=== PATIENT | female | born 1935 | race Caucasian/White ===

== ENCOUNTER → 2018-05-27 10:51 | Outpatient (CLI) | payer MEDICARE, SELFPAY ==
--- NOTE | 2018-05-27 11:05 | XR_ITS ---
XR abdomen min 2V HISTORY: ITS.REASON: CONSTIPATION ORDERING PHYSICIAN: Alexandra Viera PATIENT AGE: 82 years COMPARISON: None FINDINGS: Bowel gas pattern is nonspecific and nonobstructive. Scattered pelvic calcifications are present consistent with phleboliths. There has been prior fusion of the lumbar spine at L3-L4 and L5. There is mild sclerosis of the left SI joint IMPRESSION: No acute finding. Small amount of colonic feces noted in the rectosigmoid area. No radiographic evidence of impaction
== END ==
PROVIDERS: PCP Family Medicine; Visit Provider Nurse Practitioner Family
DX: K59.00 Constipation, unspecified (principal)
CPT/HCPCS: 74019

== ENCOUNTER → 2020-07-24 15:29 | Outpatient (CLI) | payer MEDICARE, SELFPAY ==
--- NOTE | 2020-07-24 15:35 | XR_ITS ---
PROCEDURE: XR ACUTE ABDOMEN SERIES CLINICAL INDICATION: CONSTIPATION COMPARISON: No exams were available for comparison FINDINGS: Frontal view of the chest shows coronary artery stents and or calcifications with normal heart size. Calcified granuloma is present in the right lower lobe. Upright and supine views of the abdomen show postsurgical changes in the lumbar spine with inter pedicular screws at L3-L4 and L5 and mild lumbar scoliosis convex left. Bowel gas pattern is nonspecific. There is a mild amount of retained colonic feces throughout the colon. No intestinal obstruction or free air is evident. Mild osteoarthritis of the hips Other findings:Surgical clip right upper quadrant IMPRESSION: Mild constipation Dictated by: Isidro Gonzales MD 07/24/2020 16:47 Isidro Gonzales MD in [place] 07/24/2020 16:47
== END ==
PROVIDERS: PCP Family Medicine; Visit Provider Family Medicine
DX: K59.00 Constipation, unspecified (principal)
CPT/HCPCS: 74021

== ENCOUNTER → 2020-09-19 13:01 | Outpatient (CLI) | payer MEDICARE, SELFPAY ==
--- NOTE | 2020-09-19 13:07 | XR_ITS ---
PROCEDURE: XR KNEE RT 3V CLINICAL INDICATION: M17.9 Pain COMPARISON: No exams were available for comparison FINDINGS: No fracture or dislocation. No lytic or blastic change. There is normal mineralization. There are mild osteoarthritic changes of the medial compartment and patellofemoral joint. Chondrocalcinosis involves the medial and lateral meniscus. Vascular calcification is also present Other findings:None. IMPRESSION: Mild osteoarthritic change with chondrocalcinosis Dictated by: Isidro Gonzales MD 09/19/2020 14:33 Isidro Gonzales MD in [place] 09/19/2020 14:33
--- NOTE | 2020-09-19 13:07 | XR_ITS ---
PROCEDURE: XR KNEE LT 3V CLINICAL INDICATION: Pain COMPARISON: No exams were available for comparison FINDINGS: No fracture or dislocation. No lytic or blastic change. There is normal mineralization. Minimal osteoarthritic changes are present involving all 3 compartments with chondrocalcinosis of the medial meniscus and lateral meniscus. There is some increased soft tissue density in the suprapatellar region suggesting knee joint effusion. Vascular calcification noted of the popliteal artery. There is soft tissue calcification along the posterior aspect of the knee nonspecific. There is some faint calcification in the suprapatellar region possibly related to some mild capsular calcification. Other findings:None. IMPRESSION: Mild osteoarthritic change with chondrocalcinosis and small knee joint effusion Dictated by: Isidro Gonzales MD 09/19/2020 14:35 Isidro Gonzales MD in [place] 09/19/2020 14:35
== END ==
PROVIDERS: PCP Family Medicine; Visit Provider Family Medicine
DX: M17.0 Bilateral primary osteoarthritis of knee (principal)
CPT/HCPCS: 73562

== ENCOUNTER 2021-03-27 07:07 | Observation (INO) | payer MEDICARE, SELFPAY ==
[2021-03-27] VITALS (13 sets, daily range): BP systolic 142–167; BP diastolic 61–86; PULSE 60–103; RESP 14–20; TEMP 36.6–37.2; O2SAT 95–98; BMI 27.4; BMI 27.2; BMI 27.3
--- NOTE | 2021-03-27 07:13 | ECG_ITS ---
APPROVED REPORT Exam: Resting ECG HR:99 bpm ECG Measurements Heart Rate 99 AXES WI 190 P 77 QRSd 164 QRS 161 QT 386 T -14 QTc 495 Conclusion Normal sinus rhythm Right axis deviation Left bundle branch block Abnormal ECG Electronically signed by : Ramón Bianchi MD 03/27/2021 21:49:48
--- NOTE | 2021-03-27 07:19 | XR_ITS ---
PROCEDURE: XR CHEST PORTABLE CLINICAL HISTORY: chest pain,soa COMPARISON: CR XR ACUTE ABDOMEN SERIES from 07/24/2020 FINDINGS: Mild cardiomegaly without failure. The lungs are clear without infiltrates, suspicious nodules, or pleural effusions. No acute bony abnormalities. IMPRESSION: No acute findings. Dictated by: Isidro Gonzales MD 03/27/2021 07:58 Isidro Gonzales MD in [place] 03/27/2021 07:58
--- NOTE | 2021-03-27 07:29 | HMH.EDGENADL ---
ED Disposition Clinical Impression: Chest pain Qualifiers: Chest pain type: unspecified Qualified Code(s): R07.9 - Chest pain, unspecified Disposition: Admitted as Observation Condition on Discharge: Fair Referrals: Leo Grayson MD [Primary Care Provider] - Time of Disposition: 08:19 - Critical Care Critical Care Time: No Attestation: On 03/27/21, the high probability of a clinically significant, sudden or life threatening deterioration of the following system(s) required my full and direct attention, intervention and personal management. The time I documented below is in addition to time spent performing reported procedures but includes the following listed in this critical care notation. Medical Decision Making - Medical Records Medical records reviewed: Yes: I reviewed the patient's medical records. - Rajiv Inquiry Pt receiving controlled substance: No Vital Signs: 03/27/21 07:08 03/27/21 07:33 03/27/21 08:12 Temperature 97.8 F Temperature Source Oral Pulse Rate 97 H 82 Pulse Rate [Left Radial] 103 H Respiratory Rate 18 16 20 Blood Pressure 159/79 H 157/76 H Blood Pressure [Right Arm] 164/86 H Blood Pressure Mean [Right Arm] 112 Blood Pressure Source [Right Arm] Automatic Cuff Blood Pressure Position [Right Arm] Sitting 02 Sat by Pulse Oximetry 98 97 96 Oxygen Delivery Method Room Air Room Air Room Air - Lab Data Lab Results 03/27/21 07:22: WBC 8.0, RBC 4.39, Hgb 13.8, Hct 40.3, MCV 91.7, MCH 31.4 H, MCHC 34.3, RDW 13.3, Plt Count 192, MPV 9.4, Neut % (Auto) 82.6 H, Lymph % (Auto) 8.7 L, [place] % (Auto) 6.6, Eos % (Auto) 1.6, Baso % (Auto) 0.5, Neut # (Auto) 6.6, Lymph # (Auto) 0.7, [place] # (Auto) 0.5, Eos # (Auto) 0.1, Baso # (Auto) 0.0 03/27/21 07:22: Sodium 136, Potassium 3.8, Chloride 103, Carbon Dioxide 26, Anion Gap 10.8, BUN 15, Creatinine 0.90, Estimated Creat Clear 44, Estimated GFR 60, Est GFR ( Amer) 72, Glucose 126 H, Calcium 9.7, Troponin I 0.19 H Result diagrams: 03/27/21 07:22 03/27/21 07:22 Orders (Tests/Meds): ED MEDICATIONS Discontinued Medications Generic Name Dose Route Start Last Admin Trade Name Lizette PRN Reason Stop Dose Admin Aspirin 324 mg 03/27/21 07:21 12 07:32 Aspirin 81mg Chewable Tablet PO 03/27/21 07:22 324 mg ONCE ONE Administration ORDERS Category Date Time Status D-Dimer Stat Lab 03/27/21 07:22 Received Troponin I Q3H Lab 03/27/21 10:30 Ordered Troponin I Q3H Lab 03/27/21 13:30 Ordered - ECG Data Tracing #1 Sinus rhythm with ventricular rate of 99 bpm. QRS 164, QTc 495. Left bundle branch block present. No ST segment elevations. No arrhythmia. - WENDY Score for Non-Stemi Age of Patient: 80-89 years old Heart Rate: 90-109 bpm Systolic Blood Pressure: 140-159 mmHg Serum Creatinine: 1.20-1.59 mg/dl CHF Killip Class: I-No CHF Other Risk Factors: None Non-Stemi Risk Score: 140 Medical Decision Narrative: In summary this is an 85-year-old female presenting to the emergency department after an episode of chest pain. Patient clinically stable on arrival. Vital signs within normal limits with exception of tachycardia to 103. Afebrile. Differential diagnoses include atypical ACS, inflammatory reaction from vaccination, pleuritic chest pain, pneumonia. Will obtain BC, BMP, chest x-ray, EKG, troponin profile, D-dimer. Patient given 325 chewable aspirin Chest x-ray shows no focal opacity. No other acute abnormality. Initial laboratory results show no anemia. Renal function adequate. Initial troponin is elevated at 0.19. Patient's turbine technician is at [facility], Dr. Ariza. Offered her transfer. She does not want to be admitted elsewhere. Dr. Grayson consulted for admission. On reassessment, she is not having chest pain at this time. We will repeat troponin in 2 hours. Admit for trending of troponin, echo, observation. General Adult HPI - General Stated
[2021-03-27 07:38] LABS: Basophils % 0.5 % (0.1-2.0); Eosinophils # 0.1 K/mm3 (0.0-0.4); Eosinophils % 1.6 % (0.1-12.0); Hematocrit 40.3 % (37.0-47.0); Hemoglobin 13.8 g/dL (12.2-16.2); Lymphocytes # 0.7 K/mm3 (0.7-4.5); Lymphocytes % 8.7 % (10-50); Mean Corpuscular HGB Conc 34.3 g/dL (31.8-35.4); Mean Corpuscular Hemoglobin 31.4 pg (27.0-31.2); Mean Corpuscular Volume 91.7 fl (81-99); Mean Platelet Volume 9.4 fl (7.4-10.4); Monocytes # 0.5 K/mm3 (0.1-1.0); Monocytes % 6.6 % (1.7-9.3); Neutrophils # 6.6 K/mm3 (1.8-7.8); Neutrophils % 82.6 % (37.0-80.0); Platelet Count 192 K/mm3 (142-424); Red Blood Count 4.39 M/mm3 (4.20-5.40); Red Cell Distribution Width 13.3 % (11.5-17.5)
[2021-03-27 07:57] LABS: Anion Gap 10.8 mEq/L (5-15); Blood Urea Nitrogen 15 mg/dl (7-17); Calcium 9.7 mg/dl (8.4-10.2); Carbon Dioxide 26 mmol/L (22.0-30.0); Chloride 103 mmol/L (98-107); Creatinine Clearance Estimated 44 mL/min (50-200); Estimated Glomerular Filt Rate 60 ml/min (>60); GFR (African American) 72 ML/MIN (>60); Glucose 126 mg/dl (74-100); Potassium 3.8 mmoL/L (3.5-5.1); Sodium 136 mmol/L (136-145)
[2021-03-27 08:09] LABS: Troponin I 0.19 ng/ml (0.00-0.034)
[2021-03-27 08:16] LABS: D-Dimer 0.63 ug/mL (0.0-0.5)
--- NOTE | 2021-03-27 08:30 | PC.NURSE ---
called Erin to obtain prior stress test records. medical released faxed.
--- NOTE | 2021-03-27 08:33 | CA_ITS ---
APPROVED REPORT EXAM: Comprehensive 2D, Doppler, and color-flow Echocardiogram Weather Forcaster: JL Mccarthy, RVS Ht: 5 ft 2 in Wt: 149lbs BSA: 1.69 BP: 000/00 mmHg Indications: CP. CAD-2 coronary stents, HTN, LBBB, Parkinson's Echo Enhancing Agent Indication: Rule out thrombus Agent(s) / Amount(s) Used: Definity 2 cc 2D Dimensions IVSd 1.37 cm LVEF (Visual) 35.00 % PWd 0.99 cm LA Volume 89.30 mL LVDd 5.36 cm LA Volume Index 52.80 mL/m2 (M/F) 16-34 LVDs 3.90 cm F: 2.2 - 3.5 Aortic Root 2.92 cm Left Atrium 4.45 cm LVOT 2.03 cm (M/F) 1.5-2.5 M-Mode Dimensions RVDd 3.31 cm (0.9-2.6) LA Diam 4.59 cm (1.9-4.0) LVDd 5.63 cm (3.5-5.7) Ao Diam 3.18 cm (2.0-3.7) LVDs 4.79 cm (3.5-5.7) IVSd 1.25 cm (0.6-1.1) PWd 0.99 cm (0.6-1.1) EF (Teich) 30.40% EPSs 0.69 cm FS 14.50% EDV (Teich) 153.70 mL TAPSE 1.83 (<1.7) ESV (Teich) 107.00 mL LV Diastology E Decel Time 160.00 (160-240 msec) E/A Ratio 0.84 MED E' 7.80 (< 7 cm/sec) MED A' 11.40 cm/s E'/MED E' Ratio 10.23 (>14) LAT E' 7.50 (<10 cm/sec) LAT A' 13.10 cm/s E/LAT E' Ratio 10.64 (>14) Pulm Vein s 43.00 cm/sec Aortic Valve LVOT Max 86.00 (70-110 cm/s) LVOT VTI 17.35 cm AoV Peak Terry. 140.00 (50-130 cm/s) AO Peak GR. 7.90 mmHg AO Mean GR. 4.60 (<5 mmHg) AO VTI 27.97 (18-25 cm) JEANIE (VTI) 2.01 (2.5-4.5 cm2) Mitral Valve MV A Velocity 95.00 (40-130 cm/s) E/A Ratio 0.84 MV Decel. Time 160.00 (160-240 ms) MV Mean Gr. 1.80 (<2mmHg) Pulmonary Valve PV Peak Velocity 84.00 (50-150 cm/s) SC End VMAX 224.00 cm/s Tricuspid Valve TR P. Velocity 289.00 cm/s RAP Estimate 10.00 mmHg RVSP 43.30 mmHg Left Ventricle Left atrium is mildly enlarged, left ventricle is mildly dilated, there is severe reduced left ventricular systolic function, visually estimated ejection fraction 25 to 30%, there is marked hypokinesis involving the mid to distal septum, anterior and anterior apical wall. Grade 1 diastolic dysfunction seen without tissue Doppler evidence of late left atrial pressure. Right Ventricle Right atrium and right ventricle are normal size and contractility. Aortic Valve Aortic valve is minimally thickened and fibrosed, there is no aortic stenosis or aortic insufficiency. Mitral Valve Mitral valve grossly normal, there is mild mitral regurgitation. Tricuspid Valve Tricuspid valve grossly normal, there is mild tricuspid regurgitation. Calculated right ventricular systolic pressure is 43 mmHg. Pulmonic Valve Pulmonic valve is poorly visualized. Great Vessels Aortic root is normal size. Inferior vena cava is mildly dilated with normal inspiratory collapse. Pericardium No significant pericardial effusion noted. Conclusion 1. Mildly enlarged left atrium, normal left ventricular size, mild concentric left ventricular hypertrophy, severely reduced left ventricular systolic function, visually estimated ejection fraction 25 to 30%, with segmental wall motion abnormality described above, grade 1 diastolic dysfunction seen without tissue Doppler evidence of raise left atrial pressure. 2. Mild mitral and tricuspid regurgitation, calculated right ventricular systolic pressure is 43 mmHg. 3. No significant pericardial effusion noted. 4. Inferior vena cava is mildly dilated with normal inspiratory collapse. Electronically sig
[2021-03-27 08:51] LABS: Coronavirus 19, PCR Not Detected (NotDetected); Influenza A, PCR Not Detected (NotDetected); Influenza B, PCR Not Detected (NotDetected)
--- NOTE | 2021-03-27 10:01 | PC.NURSE ---
calling Erin to check the status of records
--- NOTE | 2021-03-27 10:05 | PC.NURSE ---
[facility] states they do not have records associated with pt. being transferred to [facility]
--- NOTE | 2021-03-27 10:11 | PC.NURSE ---
Report given Paula PALENCIA
--- NOTE | 2021-03-27 10:31 | HMH.HP ---
*Admission Date: 03/27/17 <Alexandra Viera 03/27/21 10:55> *Chief complaint: Chest pain <Alexandra Viera 03/27/21 10:55> *History of present illness: Ms. Cantrell is an 85-year-old female with a history of hyperlipidemia, orthostatic hypotension, esophageal reflux, DVT, ASCVD, peptic ulcer disease, Parkinson's disease who presented to [facility] for evaluation after experiencing severe right anterior chest pain radiating through to her back. She stated the pain started around 3 AM and continued for an hour and gradually lessened to the point where she was able to go back to sleep. At this point she is comfortable. She denies associated shortness of breath, nausea and vomiting, and palpitations. She states it was just severe pain. She reports also that she had her flu vaccine yesterday. She experienced the same type of chest pain after receiving her COVID injection. She does see her accounting/finance tutor, Dr. Collins annually. In the emergency room she was found to be clinically stable upon arrival and was comfortable. Heart rate was 103. Initial troponin was slightly elevated.. She was then admitted for further evaluation. Chest x-ray revealed no acute findings. Echocardiogram has been completed with pending results. Laboratory data revealed no anemia and white blood cell count of 8000 blood chemistries show normal electrolytes with a BUN of 15 and creatinine 0.9. Troponin I is slightly elevated at 0.19. At the time of this exam patient remains comfortable. She denies shortness of breath. <Socorro Vierahy 03/27/21 10:55> [facility] History Medical History: Reports:: Atherosclerotic Heart Disease, Coronary Artery Disease, Deep Vein Thrombosis, Gastroesophageal Reflux Disease(GERD), Hyperlipidemia, Ulcer <MaximilianoAlexandra 03/27/21 10:55> *Have you ever received a pneumonia vaccine?: No <MaximilianoAlexandra 03/27/21 10:55> *Have you received a flu vaccine this season?: No <Alexandra Viera 03/27/21 10:55> Other Medical History: Reports: Arthritis (Degenerative joint disease) <Alexandra Viera 03/27/21 10:55> Comment:: Parkinson's disease <Alexandra Viera 03/27/21 10:55> Laterality Cases: Bilateral: Cataract <VieraAlexandra raymond 03/27/21 10:55> Other Surgeries: Yes: Cholecystectomy, Coronary Stent, Hysterectomy-Total <Viera,Alexandra 03/27/21 10:55> Comment: L3-L4 complete bilateral laminectomy and decompression; L3-L4-L5 with interbody bony endplate preparation and fusion at 3?4 and L4-5 in 2014. <MaximilianoAlexandra 03/27/21 10:55> - *Social History Smoking Status: Never smoker <Alexandra Viera 03/27/21 10:55> Alcohol Intake: never <MaximilianoAlexandra 03/27/21 10:55> *Occupational Status:: retired <Alexandra Viera 03/27/21 10:55> Housing: house <Alexandra Viera 03/27/21 10:55> Household Members: none <Socorro Vierahy 03/27/21 10:55> *Travel in the last 8 weeks: None <Alexandra Viera 03/27/21 10:55> Family Hx:: Hypertension, Stroke <Alexandra Viera 03/27/21 10:55> Review of Systems - Constitutional Reports lack of energy, Denies fever(s) <Alexandra Viera 03/27/21 10:55> - Eyes Denies change in vision <Alexandra Viera 03/27/21 10:55> - ENT Denies ear pain, Denies headache(s), Denies sore throat <Socorro Vierahy 03/27/21 10:55> - *Cardiovascular Reports chest pain, Reports chest pain at rest, Reports leg swelling (Left leg greater than right), Denies shortness of breath, Denies irregular heart rhythm <Alexandra Viera 03/27/21 10:55> - *Respiratory Denies chest congestion, Denies cough <Alexandra Viera 03/27/21 10:55> - *Gastrointestinal Reports heartburn, Denies abdominal pain, Denies change in stools, Denies nausea, Denies vomiting <Alexandra Viera 03/27/21 10:55> - *Genitourinary Reports difficulty urinating (Voids frequently in small amounts for the past 2 to 3 months) <Alexandra Viera 03/27/21 10:55> - *Musculoskeletal Denies abnormal walking, Denies muscle weakness <Alexandra Viera - 03/27/21 10:5
--- NOTE | 2021-03-27 10:31 | PC.NURSE ---
pt arrived to the floor at this time
[2021-03-27 11:27] LABS: Troponin I 0.19 ng/ml (0.00-0.034)
--- NOTE | 2021-03-27 11:55 | HMH.PHAVTE ---
[facility] VTE Monitoring - Patient Demographics Admission date: 03/27/21 Report Date: 03/27/21 Time: 11:55 Allergies/Adverse Reactions: Patient Allergies No Known Allergies Allergy (Verified 08/06/17 16:04) Height: 1.57 m Weight: 67.58 kg Patient Problems: Current Active Problems Chest pain (Acute) ASCVD (arteriosclerotic cardiovascular disease) (Chronic) GERD (gastroesophageal reflux disease) (Chronic) Parkinsons disease (Chronic) Orthostatic hypotension (Chronic) - VTE Risk Labs: VTE Related Lab Results Hgb 13.8 g/dL (12.2-16.2) 03/27/21 07:22 Hct 40.3 % (37.0-47.0) 03/27/21 07:22 Plt Count 192 K/mm3 (142-424) 03/27/21 07:22 BUN 15 mg/dl (7-17) 03/27/21 07:22 Creatinine 0.90 mg/dl (0.52-1.04) 03/27/21 07:22 Estimated Creat Clear 44 mL/min (50-200) 03/27/21 07:22 Was VTE Risk Assessment Performed: Yes VTE Risk Level: Low Risk Clinical Trial Participant: No - Prophylaxis VTE Prophylaxis Ordered?: Yes Types of VTE Prophylaxis: TEDS Knee High
[2021-03-27 14:01] LABS: Troponin I 0.15 ng/ml (0.00-0.034)
--- NOTE | 2021-03-27 17:31 | PC.NURSE ---
Patient is NSR on tele and on room air. Patient is up ad-suzie. Patient has been up to chair. Alert and oriented times 4. Phone and call light in reach. Will continue to monitor.
--- NOTE | 2021-04-02 23:57 | HMH.DCSUM ---
General - General Admission date:: 03/27/21 <Leo Grayson - 05/19/21 22:22> 03/27/21 <Bernarda Patterson - 04/03/21 00:01> Discharge date: 03/27/21 <Bernarda Patterson - 04/03/21 00:01> HPI HPI: Ms. Cantrell is an 85-year-old female with a history of hyperlipidemia, orthostatic hypotension, esophageal reflux, DVT, ASCVD, peptic ulcer disease, Parkinson's disease who presented to [facility] for evaluation after experiencing severe right anterior chest pain radiating through to her back. She stated the pain started around 3 AM and continued for an hour and gradually lessened to the point where she was able to go back to sleep. At this point she is comfortable. She denies associated shortness of breath, nausea and vomiting, and palpitations. She states it was just severe pain. She reports also that she had her flu vaccine yesterday. She experienced the same type of chest pain after receiving her COVID injection. She does see her aeronautical engineering technologist, Dr. Collins annually. In the emergency room she was found to be clinically stable upon arrival and was comfortable. Heart rate was 103. Initial troponin was slightly elevated.. She was then admitted for further evaluation. Chest x-ray revealed no acute findings. Echocardiogram has been completed with pending results. Laboratory data revealed no anemia and white blood cell count of 8000 blood chemistries show normal electrolytes with a BUN of 15 and creatinine 0.9. Troponin I is slightly elevated at 0.19. At the time of this exam patient remains comfortable. She denies shortness of breath. <Bernarda Patterson - 04/03/21 00:01> Hospital Course Hospital Course: The patient was pain-free after admission and her troponins trended downward. She was eager to go home and was stable to be discharged. Echo was pending at the time of discharge but has since returned showing an EF of 25 to 30% with grade 1 diastolic dysfunction. She had an elevated right ventricular systolic pressure 43 mmHg. <Bernarda Patterson - 04/03/21 00:01> Objective Vital signs: Temp Pulse Resp BP Pulse Ox 99.0 F 60 18 142/62 H 96 03/27/21 15:45 03/27/21 17:23 03/27/21 15:45 03/27/21 15:45 03/27/21 15:45 <Leo Grayson - 05/19/21 22:22> Temp Pulse Resp BP Pulse Ox 99.0 F 60 18 142/62 H 96 03/27/21 15:45 03/27/21 17:23 03/27/21 15:45 03/27/21 15:45 03/27/21 15:45 <Bernarda Patterson - 04/03/21 00:01> Narrative: - Constitutional no acute distress Comments: Lying on stretcher in the emergency room awaiting admission to the hospital. She appears comfortable. - *Routine HEENT Exam Head: Present: normocephalic, atraumatic Eye: Present: PERRL. Absent: conjunctival icterus, scleral injection ENT: Present: mucous membranes moist, oropharynx clear - *Routine Neck Exam Present: supple. Absent: carotid bruit, lymphadenopathy, thyromegaly - *Routine Respiratory Exam Present: CTA bilaterally (Anteriorly and posteriorly) - *Routine Cardiovascular Exam Present: RRR (Monitor showing sinus rhythm in the 80s with a bundle branch block) - *Routine Abdominal Exam Present: soft, normoactive bowel sounds. Absent: tenderness - *Routine Rectal Exam Rectal:: deferred - *Routine Genitalia Exam Genitalia:: deferred - *Routine Extremities Exam Absent: edema, calf tenderness Comments: Slight tremor of hands bilaterally noted - *Routine Neurological Exam Present: alert, oriented X3 <Bernarda Patterson - 04/03/21 00:01> DS: Diagnosis - Discharge Diagnosis (1) Chest pain Status: Acute (2) Elevated troponin Status: Acute (3) ASCVD (arteriosclerotic cardiovascular disease) Status: Chronic (4) GERD (gastroesophageal reflux disease) Status: Chronic (5) Parkinsons disease Status: Chronic (6) Orthostatic hypotension Status: Chronic <Bernarda Patterson - 04/02/21 23:57> (1)
== END 2021-03-27 18:06 | disposition home or self-care (01) ==
LOC: ER 08:25 → 2ND 09:43
PROVIDERS: Emergency Medicine; Admitting Provider Family Medicine; Emergency Provider Emergency Medicine; PCP Family Medicine; Visit Provider Family Medicine
DX: R07.9 Chest pain, unspecified (principal); I25.10 Atherosclerotic heart disease of native coronary artery without angina pectoris; I10 Essential (primary) hypertension; Z79.899 Other long term (current) drug therapy; R77.8 Other specified abnormalities of plasma proteins; K21.9 Gastro-esophageal reflux disease without esophagitis; G20 Parkinson's disease; I95.1 Orthostatic hypotension
CPT/HCPCS: G0378; 36415; 71045; 80048; 84484; 85025; 85378; 93005; 93306; 99284; C9803; Q9957; U0003; U0005

== ENCOUNTER → 2021-04-04 09:39 | Outpatient (CLI) | payer MEDICARE, SELFPAY ==
[2021-04-04 10:20] LABS: Basophils % 0.6 % (0.1-2.0); Eosinophils # 0.1 K/mm3 (0.0-0.4); Eosinophils % 1.4 % (0.1-12.0); Hematocrit 37.9 % (37.0-47.0); Lymphocytes # 1.9 K/mm3 (0.7-4.5); Lymphocytes % 27.8 % (10-50); Mean Corpuscular HGB Conc 34.3 g/dL (31.8-35.4); Mean Corpuscular Hemoglobin 31.2 pg (27.0-31.2); Mean Platelet Volume 8.5 fl (7.4-10.4); Monocytes # 0.5 K/mm3 (0.1-1.0); Monocytes % 6.6 % (1.7-9.3); Neutrophils # 4.4 K/mm3 (1.8-7.8); Neutrophils % 63.6 % (37.0-80.0); Platelet Count 225 K/mm3 (142-424); Red Blood Count 4.17 M/mm3 (4.20-5.40); Red Cell Distribution Width 13.3 % (11.5-17.5); White Blood Count 6.9 K/mm3 (4.8-10.8)
[2021-04-04 11:07] LABS: 25-OH Vitamin D, Total 36.9 ng/mL (30-100)
[2021-04-04 23:44] LABS: Alanine Aminotransferase 13 U/L (12-78); Albumin Level 3.9 g/dl (3.5-5.0); Albumin/Globulin Ratio 1.4 (1.1-1.8); Alkaline Phosphatase 64 U/L (38-126); Anion Gap 11.1 mEq/L (5-15); Aspartate Amino Transferase 25 U/L (14-36); Bilirubin,Total 0.6 mg/dl (0.2-1.3); Blood Urea Nitrogen 17 mg/dl (7-17); Calcium 9.6 mg/dl (8.4-10.2); Carbon Dioxide 21 mmol/L (22.0-30.0); Chloride 109 mmol/L (98-107); Chol/HDL Ratio 2.2 (1-3.5); Cholesterol 128 mg/dl (140-200); Estimated Glomerular Filt Rate 68 ml/min (>60); GFR (African American) 82 ML/MIN (>60); Globulin 2.7 g/dL (1.3-3.2); Glucose 95 mg/dl (74-100); HDL Cholesterol 58 mg/dl (40-60); Potassium 4.1 mmoL/L (3.5-5.1); Sodium 137 mmol/L (136-145); Total Protein,Serum 6.6 g/dl (6.3-8.2); Triglycerides 159 mg/dl (30-150); VLDL Cholesterol 32 mg/dL (0-40)
[2021-04-04 23:54] LABS: Direct LDL Cholesterol 45.01 mg/dL (100-129)
[2021-04-05 00:15] LABS: Thyroid Stimulating Hormone 2.33 uIU/mL (0.465-4.68)
[2021-04-05 00:33] LABS: Vitamin B12 389 pg/mL (239-931)
== END ==
PROVIDERS: Visit Provider Family Medicine
DX: I10 Essential (primary) hypertension (principal); E78.5 Hyperlipidemia, unspecified; E53.8 Deficiency of other specified B group vitamins; E55.9 Vitamin D deficiency, unspecified; R53.83 Other fatigue
CPT/HCPCS: 36415; 80053; 80061; 82306; 82607; 84443; 85025

== ENCOUNTER 2022-01-26 07:52 | Emergency (ER) | payer MEDICARE, SELFPAY ==
[2022-01-26 07:53] VITALS: BP 173/84; PULSE 79; RESP 18; TEMP 36.8; O2SAT 98; BMI 23.4
--- NOTE | 2022-01-26 08:30 | PC.NURSE ---
ED MD AT BEDSIDE FOR EVALUATION
--- NOTE | 2022-01-26 08:34 | HMH.EDGENADL ---
Discharge Plan Disposition Patient Disposition: Home, Self-Care Condition: Good Prescriptions Prescriptions: New cephalexin 250 mg capsule 250 mg PO Q6H 5 Days Qty: 20 0RF ibuprofen 600 mg tablet 600 mg PO Q6H PRN (Reason: moderate pain ) Qty: 20 0RF polyethylene glycol 3350 [Miralax] 17 gram powder in packet 17 g PO DAILY Qty: 5 0RF No Action aspirin [Aspir-81] 81 MG tablet,delayed release (DR/EC) 81 mg PO DAILY carbidopa-levodopa 1 EACH tablet,disintegrating 1 ea PO TID Rx Instructions: 25/100mg benztropine 2 MG tablet 2 mg PO TID rosuvastatin 20 MG tablet 20 mg PO HS Referrals Follow up/Referrals: Leo Grayson MD [Primary Care Provider] - See instructions Activity Restrictions/Add. Instructions Additional Instructions/Restrictions: Ibuprofen as needed for pain. Continue stool softeners. Add MiraLAX for 5 days. Follow-up with primary care provider, call Friday to make appointment. Urine culture has been performed, results generally take 2 to 3 days. Follow-up the results of this test with your primary care provider within 2 to 3 days. Take antibiotic until culture results received. Additional instructions for ABDOMINAL PAIN: See your physician as soon as possible for further evaluation. Return immediately if worsening abdominal pain, vomiting, shortness of breath, fever, vomiting of blood or abdominal distention. Clinical Impressions Clinical Impression: Abdominal pain, Acute constipation, Hernia, umbilical Discharge ED Provider: Nirmal Clifford General Adult HPI General Chief complaint: Abdominal Pain Stated complaint: post op 01/25, abd pain Time Seen by Provider: 01/26/22 08:29 Mode of Arrival: Wheelchair Limitations: No Limitations Description of Symptoms (Recalled from ER Triage Doc. by RN): PT REPORTS LOWER ABDOMINAL PAIN. STATES SHE FEELS LIKE SHE HAS GAS REPORTS SIMILAR EPISODE EARLIER THIS MONTH. PT REPORTS BM ON FRIDAY. HAD HEART CATH AT YESTERDAY History of Present Illness HPI narrative: 1 week history of lower abdominal pain, waxing and waning. No fever, no vomiting. No urinary symptoms. She has a chronic problem with constipation for 10 years. She takes 2 stool softener tablets with each meal. She says that somebody told her to use some prunes for her current symptoms, which she did and had a bowel movement on Friday 3 days ago. She has had a prior cholecystectomy and hysterectomy. She has a history of ulcer disease. She had a heart cath done yesterday at [facility] in [place]. She has eaten very little since that procedure. Related Data Home Medications Medication Instructions Recorded Confirmed aspirin 81 mg tablet,delayed 81 mg PO DAILY heart health 08/06/17 01/26/22 release (Aspir-) carbidopa 25 mg-levodopa 100 mg 1 ea PO TID parkinsons 08/06/17 01/26/22 disintegrating tablet benztropine 2 mg tablet 2 mg PO TID parkinsons 03/27/21 01/26/22 rosuvastatin 20 mg tablet 20 mg PO HS Cholesterol 03/27/21 01/26/22 Previous Rx's Medication Instructions Recorded cephalexin 250 mg capsule 250 mg PO Q6H 5 days #20 caps 01/26/22 ibuprofen 600 mg tablet 600 mg PO Q6H PRN moderate pain 01/26/22 #20 tabs polyethylene glycol 3350 17 gram 17 g PO DAILY #5 ea 01/26/22 oral powder packet (Miralax) Allergies Allergy/AdvReac Type Severity Reaction Status Date / Time No Known Allergies Allergy Verified 08/06/17 16:04 [facility] Medical History (Updated 01/26/22 @ 11:07 by Nirmal Clifford MD) Cataract Surgical History (Updated 01/26/22 @ 08:11 by Crystal Higginbotham RN) H/O: hysterectomy History of back surgery Hx of cardiac cath Family History (Updated 01/26/22 @ 08:11 by Crystal Higginbotham RN) Other No significant family history Social History (Updated 01/26/22 @ 08:12 by Crystal Higginbotham RN) Smoking Status: Never smoker alcohol intake: never current occup
--- NOTE | 2022-01-26 08:41 | CT_ITS ---
PROCEDURE INFORMATION: Exam: CT Abdomen And Pelvis With Contrast Exam date and time: 01/26/2022 9:36 AM Age: 86 years old Clinical indication: Constipation and other: Unable to void; Additional info: Lower abdominal pain, swelling TECHNIQUE: Imaging protocol: Computed tomography of the abdomen and pelvis with contrast. Radiation optimization: All CT scans at this facility use at least one of these dose optimization techniques: automated exposure control; mA and/or kV adjustment per patient size (includes targeted exams where dose is matched to clinical indication); or iterative reconstruction. Contrast material: ISOVUE; Contrast volume: 75 ml; Contrast route: IV; COMPARISON: CR XR ACUTE ABDOMEN SERIES 07/24/2020 3:36 PM FINDINGS: Lungs: Calcified granuloma in the right lung. Heart: Cardiomegaly. Liver: Small cyst in the left hepatic lobe. Gallbladder and bile ducts: Cholecystectomy. Pancreas: Normal. No ductal dilation. Spleen: Calcified splenic granulomas. Subcentimeter low-density lesions in the spleen may reflect tiny pseudocysts. Adrenal glands: Normal. No mass. Kidneys and ureters: Normal. No hydronephrosis. Stomach and bowel: Colonic diverticulosis without evidence of diverticulitis. No bowel obstruction. Small formed colonic stool burden. Appendix: No evidence of appendicitis. Intraperitoneal space: There is a small ill-defined area of fat stranding and soft tissue density in the ventral omentum subjacent to the umbilicus. Vasculature: Moderate burden of atherosclerotic plaque in the abdominal aorta and branch vessels. No aneurysm. Lymph nodes: Unremarkable. No enlarged lymph nodes. Urinary bladder: Unremarkable as visualized. Reproductive: Hysterectomy. Bones/joints: Osteopenia. Postsurgical changes of posterior decompression and PLIF spanning L3 through L5. Soft tissues: There is a tiny fat containing periumbilical hernia. IMPRESSION: Small area of presumed fat necrosis in the ventral omentum subjacent to the umbilicus. Otherwise, no acute findings.
[2022-01-26 08:53] LABS: Basophils # 0.4 K/mm3 (0-0.2); Basophils % 4.9 % (0.1-2.0); Eosinophils % 0.5 % (0.1-12.0); Hematocrit 46.6 % (37.0-47.0); Hemoglobin 15.2 g/dL (12.2-16.2); Lymphocytes # 2.2 K/mm3 (0.7-4.5); Lymphocytes % 26.2 % (10-50); Mean Corpuscular HGB Conc 32.7 g/dL (31.8-35.4); Mean Corpuscular Hemoglobin 31.5 pg (27.0-31.2); Mean Corpuscular Volume 96.4 fl (81-99); Mean Platelet Volume 8.4 fl (7.4-10.4); Monocytes # 0.5 K/mm3 (0.1-1.0); Monocytes % 6.5 % (1.7-9.3); Neutrophils # 5.5 K/mm3 (1.8-7.8); Neutrophils % 66.8 % (37.0-80.0); Platelet Count 233 K/mm3 (142-424); Red Blood Count 4.83 M/mm3 (4.20-5.40); Red Cell Distribution Width 13.4 % (11.5-17.5); White Blood Count 8.2 K/mm3 (4.8-10.8)
[2022-01-26 08:54] LABS: Chloride 102 mmol/L (98-107)
[2022-01-26 08:55] LABS: Sodium 140 mmol/L (136-145)
[2022-01-26 08:56] VITALS: BP 152/77; PULSE 69; RESP 14; O2SAT 96
[2022-01-26 08:57] LABS: Alanine Aminotransferase 11 U/L (12-78); Albumin Level 4.3 g/dl (3.5-5.0); Albumin/Globulin Ratio 1.4 (1.1-1.8); Alkaline Phosphatase 89 U/L (38-126); Aspartate Amino Transferase 25 U/L (14-36); Bilirubin,Total 0.9 mg/dl (0.2-1.3); Blood Urea Nitrogen 16 mg/dl (7-17); Calcium 9.4 mg/dl (8.4-10.2); Carbon Dioxide 28 mmol/L (22.0-30.0); Creatinine Clearance Estimated 41 mL/min (50-200); Estimated Glomerular Filt Rate 68 ml/min (>60); GFR (African American) 82 ML/MIN (>60); Glucose 109 mg/dl (74-100); Lipase 100 U/L (23-300); Total Protein,Serum 7.3 g/dl (6.3-8.2)
--- NOTE | 2022-01-26 09:28 | PC.NURSE ---
pt up to restroom
--- NOTE | 2022-01-26 09:38 | PC.NURSE ---
PT TO CT PER WC
--- NOTE | 2022-01-26 09:48 | PC.NURSE ---
PT RETURNED FROM CT
--- NOTE | 2022-01-26 09:49 | PC.NURSE ---
pt back from rad
[2022-01-26 10:01] LABS: Microscopic, Urine URINE MICROSCOPIC (MICROSCOPIC)
[2022-01-26 10:03] VITALS: BP 167/74; PULSE 67; RESP 16; O2SAT 98
[2022-01-26 10:23] LABS: Appearance,Urine CLEAR (Clear); Bilirubin,Urine Negative (Negative); Blood, Urine TRACE-I (Negative); Color,Urine YELLOW (Yellow); Glucose,Urine (UA) Negative (Negative); Ketones,Urine Negative (Negative); Leukocyte Esterase,Urine 2+ (Negative); Nitrate,Urine Negative (Negative); PH,Urine 5.5 (5.0-8.5); Protein,Urine Negative (Negative); Specific Gravity, Urine 1.025 (1.005-1.030); Urobilinogen,Urine 0.2 EU/dl (0.2)
--- NOTE | 2022-01-26 10:24 | PC.NURSE ---
ROUNDED ON PT, PT SLEEPING WITHOUT DISTRESS. DAUGHTER AT BEDSIDE. NO NEEDS VOICED. CALL LIGHT WITHIN REACH
[2022-01-26 10:36] LABS: Bacteria,Urine 1+ /lpf; Mucus,Urine Trace /lpf; RBC,Urine Occasional #/hpf (0-3)
--- NOTE | 2022-01-26 10:57 | PC.NURSE ---
DR. ELI AT BEDSIDE TO DISCUSS POC WITH PT AND DAUGHTER
[2022-01-26 11:10] VITALS: BP 165/78; PULSE 65; RESP 18; TEMP 36.6; O2SAT 97
== END 2022-01-26 11:20 | disposition home or self-care (01) ==
PROVIDERS: Emergency Provider Emergency Medicine; PCP Family Medicine
DX: K59.09 Other constipation (principal); K42.9 Umbilical hernia without obstruction or gangrene; Z79.82 Long term (current) use of aspirin; Z79.899 Other long term (current) drug therapy; G20 Parkinson's disease; K21.9 Gastro-esophageal reflux disease without esophagitis; I25.10 Atherosclerotic heart disease of native coronary artery without angina pectoris; G45.9 Transient cerebral ischemic attack, unspecified
CPT/HCPCS: 74177; 80053; 81001; 83690; 85025; 87086; 96374; 99284; Q9967